=== PATIENT | female | born 2000 | race Two or more races ===

== ENCOUNTER 2019-05-16 19:15 | Emergency (ER) | payer BC, MEDICAID ==
[~2019-05-16] VITALS: Ht 167.6 cm; Wt 50.0 kg
[2019-05-17 00:04] VITALS: BP 117/72
== END 2019-05-17 02:06 | disposition left against medical advice (07) ==
LOC: ER 19:15
DX: Z53.21 Procedure and treatment not carried out due to patient leaving prior to being seen by health care provider (principal)
CPT/HCPCS: 81025